=== PATIENT | male | born 1955 | race Caucasian/White ===

== ENCOUNTER → 2019-10-08 | Outpatient (CLI) | payer MEDICARE ==
[~2019-10-08] MED LIST: ASPI81TA45 PO; CARV25TA12 PO; CARVEDILOL; FAMO-79 PO; HYDR-3240 PO; HYDR50TA99 PO; IBUP-1222 PO; LISI5TAB7 PO; NITR0.4T28 SL
== END | disposition home or self-care (01) ==
LOC: CVU 12:06
PROVIDERS: ATTEND Internal Medicine Cardiovascular Disease
DX: I08.2 Rheumatic disorders of both aortic and tricuspid valves (principal); I44.7 Left bundle-branch block, unspecified; I42.0 Dilated cardiomyopathy; Z95.810 Presence of automatic (implantable) cardiac defibrillator
CPT/HCPCS: 93306; 93356